=== PATIENT | female | born 1955 | race African-American/Black ===

== ENCOUNTER → 2018-04-10 | Outpatient (CLI) | payer OTHER ==
[~2018-04-10] MED LIST: AMLO-512 PO; CARV6 PO; LISI-662 PO; UBID50CA23 PO
== END | disposition home or self-care (01) ==
LOC: RADPV 14:16
PROVIDERS: ATTEND Internal Medicine Cardiovascular Disease
DX: I34.0 Nonrheumatic mitral (valve) insufficiency (principal); I51.7 Cardiomegaly; Z87.891 Personal history of nicotine dependence
CPT/HCPCS: 93306

== ENCOUNTER → 2019-09-18 | Outpatient (CLI) | payer MEDICARE ==
[~2019-09-18] VITALS: Ht 170.2 cm; Wt 93.0 kg
[~2019-09-18] MED LIST changes: +A20IH1; +AMLO-258; +AMLO-258 PO; -AMLO-512 PO; +ASPRIN; +BUSP30TA2 PO; +CARV12; +CARV6.2534; +CEFT1VIA IJ; +DOCU100C98 PO; +IPRA0.2S54; +LANS30CA55 PO; +LISI-618 PO; +MULT1CAP32; +NTP; +RISP0.5T5 PO; +SIMV-260; +VIT500TA PO
[2019-09-18 10:27] VITALS: BP 91/60
== END | disposition home or self-care (01) ==
LOC: MERGE 10:06 → SRCNTR 10:06
PROVIDERS: ATTEND Internal Medicine Clinical Cardiac Electrophysiology
DX: Z45.02 Encounter for adjustment and management of automatic implantable cardiac defibrillator (principal); I11.0 Hypertensive heart disease with heart failure; I50.9 Heart failure, unspecified; J45.909 Unspecified asthma, uncomplicated; F17.210 Nicotine dependence, cigarettes, uncomplicated
CPT/HCPCS: G0463; Z7500

== ENCOUNTER → 2019-12-28 | Outpatient (CLI) | payer MEDICARE | END | disposition home or self-care (01) | LOC: RADPV 08:45 | PROVIDERS: ATTEND Internal Medicine Cardiovascular Disease | DX: I34.8 Other nonrheumatic mitral valve disorders (principal); I42.9 Cardiomyopathy, unspecified | CPT/HCPCS: 93306 ==

== ENCOUNTER → 2020-08-26 | Outpatient (CLI) | payer MEDICARE ==
[~2020-08-26] VITALS: Ht 167.6 cm; Wt 93.8 kg
[~2020-08-26] MED LIST changes: -LISI-618 PO; +LISI20TA24 PO
[2020-08-26 10:47] VITALS: BP 115/62
== END | disposition home or self-care (01) ==
LOC: SRCNTR 10:13
PROVIDERS: ATTEND Internal Medicine Clinical Cardiac Electrophysiology
DX: Z45.02 Encounter for adjustment and management of automatic implantable cardiac defibrillator (principal)
CPT/HCPCS: 93289; Q3014